=== PATIENT | female | born 2000 | race Two or more races ===

== ENCOUNTER 2021-10-09 01:16 | Outpatient (CLI) | payer OTHER | END 2021-10-09 01:30 | disposition home or self-care (01) | LOC: PPH VACUNA 01:16 | PROVIDERS: ATTEND Emergency Medicine Pediatric Emergency Medicine | DX: Z23 Encounter for immunization (principal) ==

== ENCOUNTER 2024-05-19 11:50 | Outpatient (CLI) | payer OTHER | END 2024-05-19 12:36 | disposition home or self-care (01) | LOC: NST 11:50 | PROVIDERS: ATTEND Obstetrics & Gynecology | DX: Z34.83 Encounter for supervision of other normal pregnancy, third trimester (principal) ==

== ENCOUNTER 2024-05-20 14:15 | Inpatient (IN) | payer OTHER ==
[~2024-05-20] VITALS: Ht 154.9 cm; Wt 63.5 kg
[2024-05-25] MEDS ORDERED: MORPHINE SULFATE 4 MG/ML VIAL IV PRN (20:15)
[2024-05-25] MEDS ORDERED: RINGERS SOLUTION,LACTATED 1,000 ML IV SCH (20:15)
[2024-05-25 21:21] VITALS: BP 149/90
[2024-05-25 21:55] LABS: PH,URINE 6.5 (5.0-8.0); URINE APPEARANCE Clear; URINE BILIRRUBIN Negative (NEGATIVE); URINE BLOOD Negative; URINE COLOR Yellow; URINE GLUCOSE Negative (NEGATIVE); URINE KETONE Trace (NEGATIVE); URINE LEUKOCYTE Negative; URINE NITRATE Negative
[2024-05-25 21:56] LABS: URINE BACTERIA 205.3 uL (0.0-1933); URINE EPITHELIAL CELLS 12.8 uL (0.0-38.8); URINE PROTEIN 100 (NEGATIVE); URINE RBC 5.3 uL (0.0-20.8); URINE WBC 15.1 uL (0.0-23.2)
[2024-05-25 22:00] LABS: HEMATOCRIT 29.4 % (36.0-45.00); HEMOGLOBIN 10.1 g/dL (12.0-15.00); MEAN CELL VOLUME 80.2 fL (80.00-100.00); MEAN CORPUSCULAR HEMOGLOBIN 27.5 pg (27.00-32.0); MEAN CORPUSCULAR HGB CONC 34.3 g/dl (32.0-36.0); PLATELET COUNT 298 K/uL (150-450); RED BLOOD COUNT 3.66 M/uL (4.00-6.00)
[2024-05-25 22:06] LABS: INR < 0.93; PARTIAL THROMBOPLASTIN TIME 25.9 SECONDS (22.0-34.0)
[2024-05-25 22:11] LABS: BILIRUBIN TOTAL 0.26 mg/dL (0.3-1.2); CALCIUM 8.9 mg/dL (8.5-10.1); CREATININE SERUM 0.52 mg/dL (0.55-1.02); GFR 144.87; GLOBULINA 4.2 G/DL (2.4-3.5); POTASSIUM 3.23 mEq/L (3.5-5.1); TOTAL PROTEIN 7.2 gm/dL (6.4-8.2)
[2024-05-25 23:53] VITALS: BP 180/110
[2024-05-26] VITALS (7 sets, daily range): BP systolic 122–156; BP diastolic 68–110
[2024-05-26] MEDS ORDERED: LABETALOL HCL 200 MG TABLET PO ONE (01:05)
[2024-05-26] MEDS ORDERED: MAGNESIUM SULFATE IN WATER 0.04 GM/ML IV.SOLN IV ONE (01:32)
[2024-05-26] MEDS ORDERED: LABETALOL HCL 200 MG TABLET PO STA (02:30)
[2024-05-26] MEDS ORDERED: MAGNESIUM SULFATE IN WATER 500 ML IV SCH ×2 (02:30→19:30)
[2024-05-26] MEDS ORDERED: hydrALAZINE HCL 20 MG VIAL IV PRN (02:45)
[2024-05-26] MEDS ORDERED: OXYTOCIN 20 UNITS/500ML RL PIGGYBAG IV ONE (07:50)
[2024-05-26] MEDS ORDERED: OXYTOCIN 20 UNITS/500ML RL PIGGYBAG IV SCH (08:00)
[2024-05-26] MEDS ORDERED: PRENATABS RX T1 EACH PO (14:45)
[2024-05-26] MEDS ORDERED: CEFOXITIN SODIUM 2,000 MG VIAL IV STA (15:44)
[2024-05-26] MEDS ORDERED: CITRIC ACID/SODIUM CITRATE 30 ML BLIST.PACK PO STA (15:44)
[2024-05-26] MEDS ORDERED: CEFOXITIN SODIUM 2,000 MG VIAL IV ONE (15:57)
[2024-05-26] MEDS ORDERED: CITRIC ACID/SODIUM CITRATE 30 ML BLIST.PACK PO ONE (15:58)
[2024-05-26] MEDS ORDERED: OXYTOCIN 10 UNITS/ML VIAL ONE ×2 (16:32→20:39)
[2024-05-26] MEDS ORDERED: ERYTHROMYCIN BASE OPHT 1GM EACH TUBE OP ONE (16:32)
[2024-05-26] MEDS ORDERED: MORPHINE SULFATE 4 MG/ML VIAL IV ONE ×2 (19:15→19:45)
[2024-05-26] MEDS ORDERED: MEPERIDINE HCL/PF 25 MG/ML VIAL IM PRN (19:30)
[2024-05-26] MEDS ORDERED: RINGERS SOLUTION,LACTATED 1,000 ML IV SCH (19:30)
[2024-05-26] MEDS ORDERED: KETOROLAC TROMETHAMINE 30 MG VIAL IM NR (19:30)
[2024-05-26] MEDS ORDERED: OXYTOCIN 40 UNITS in RINGERS SOLUTION,LACTATED 1,000 ML IV SCH (19:30)
[2024-05-26] MEDS ORDERED: PROMETHAZINE HCL 25 MG/ML AMPUL IM PRN (19:30)
[2024-05-26] MEDS ORDERED: LABETALOL HCL 100 MG/20 ML ML IV PRN ×2 (19:45)
[2024-05-26] MEDS ORDERED: SIMETHICONE 125 MG CAPSULE PO SCH (21:00)
[2024-05-26] MEDS ORDERED: LABETALOL HCL 200 MG TABLET PO SCH (21:00)
[2024-05-27] MEDS ORDERED: KETOROLAC TROMETHAMINE 10 MG TABLET PO SCH
[2024-05-27 00:19] VITALS: BP 140/80
[2024-05-27] MEDS ORDERED: CEFAZOLIN SODIUM 1,000 MG VIAL IV SCH (01:00)
[2024-05-27 04:30] VITALS: BP 136/87
[2024-05-27] MEDS ORDERED: OxyCODONE HCL/APAP UD (PERCOCET) PO SCH (09:00)
[2024-05-27 09:48] VITALS: BP 147/86
[2024-05-27 18:01] VITALS: BP 139/82
[2024-05-28 00:56] VITALS: BP 135/77
[2024-05-28] MEDS ORDERED: LABETALOL HCL200 MG PO (07:56)
[2024-05-28] MEDS ORDERED: KETO10TA2 PO (07:57)
[2024-05-28] MEDS ORDERED: OXYC1TAB9 PO (07:57)
[2024-05-28 09:15] VITALS: BP 140/85
== END 2024-05-28 13:37 | disposition home or self-care (01) | DRG 788 ==
LOC: LDR 05-25 20:06 → O/R 05-26 17:07 → OB/GYN 05-26 18:23 → LDR 05-27 14:15 → OB/GYN 05-28 10:32
PROVIDERS: ADMIT Obstetrics & Gynecology; ATTEND Obstetrics & Gynecology
PROC: 4A1HXCZ Monitoring of Products of Conception, Cardiac Rate, External Approach (ICD-10-PCS; 2024-05-25)
PROC: 10D00Z1 Extraction of Products of Conception, Low, Open Approach (ICD-10-PCS; principal; 2024-05-26 16:15)
DX: O62.1 Secondary uterine inertia (principal); O33.8 Maternal care for disproportion of other origin; Z20.822 Contact with and (suspected) exposure to COVID-19; Z3A.40 40 weeks gestation of pregnancy; Z37.0 Single live birth